=== PATIENT | male | born 1970 | race Caucasian/White ===

== ENCOUNTER → 2022-08-13 | Day surgery (SDC) | payer OTHER ==
[~2022-08-13] MED LIST: ALBUTEROL0.63 MG/3 INH; ATORVASTATIN CA20 MG PO; AZILECT1 MG PO; CARBIDOPA-LEVO1 EAC4 PO; CARBIDOPA25 MG PO; CETIRIZINE HCL10 MG PO; LISINOPRIL10 MG PO; OMEPRAZOLE40 MG PO; POVIDONE IODINE 0.05% 0.05 % ML PO ONE; PROPOFOL IV EMULSION 10 MG/ML 20 ML VIAL IV ONE; SINEMET 25-1001 EACH PO; WIXELA 500-501 EACH INH
[2022-08-13 11:21] VITALS: BP 126/81
== END | disposition home or self-care (01) ==
LOC: OR 09:05
PROVIDERS: ATTEND Internal Medicine Gastroenterology
DX: Z12.11 Encounter for screening for malignant neoplasm of colon (principal); D12.3 Benign neoplasm of transverse colon; D12.4 Benign neoplasm of descending colon; K31.7 Polyp of stomach and duodenum; K29.50 Unspecified chronic gastritis without bleeding; K31.A11 Gastric intestinal metaplasia without dysplasia, involving the antrum; K44.9 Diaphragmatic hernia without obstruction or gangrene; K22.89 Other specified disease of esophagus; K21.9 Gastro-esophageal reflux disease without esophagitis; K59.00 Constipation, unspecified; R63.4 Abnormal weight loss; G47.33 Obstructive sleep apnea (adult) (pediatric); I10 Essential (primary) hypertension; E78.5 Hyperlipidemia, unspecified; G20 Parkinson's disease; J45.909 Unspecified asthma, uncomplicated; M19.90 Unspecified osteoarthritis, unspecified site; M06.9 Rheumatoid arthritis, unspecified; F32.A Depression, unspecified; F17.210 Nicotine dependence, cigarettes, uncomplicated; Z88.6 Allergy status to analgesic agent; Z88.0 Allergy status to penicillin; Z88.1 Allergy status to other antibiotic agents; Z01.810 Encounter for preprocedural cardiovascular examination; Z79.899 Other long term (current) drug therapy; Z68.41 Body mass index [BMI] 40.0-44.9, adult
CPT/HCPCS: 43239; 45385; 93005